=== PATIENT | female | born 1950 | race Caucasian/White ===

== ENCOUNTER 2019-03-31 07:24 | Day surgery (SDC) | payer OTHER | END 2019-03-31 11:25 | disposition home or self-care (01) | LOC: AMB-ENDOS 07:24 | DX: K57.32 Diverticulitis of large intestine without perforation or abscess without bleeding (principal) ==

== ENCOUNTER 2020-02-11 11:15 | Inpatient (IN) | payer OTHER ==
[~2020-02-11] VITALS: Ht 261.6 cm; Wt 51.7 kg
[2020-02-11] MEDS ORDERED: AVAPRO300 MG PO (14:37)
[2020-02-11] MEDS ORDERED: CARDIZEM LA180 MG PO (14:37)
[2020-02-11] MEDS ORDERED: VITAMIN D3 PO (14:38)
[2020-02-11] MEDS ORDERED: EVISTA60 MG PO (14:38)
[2020-02-11] MEDS ORDERED: LIPITOR PO (14:39)
[2020-02-11] MEDS ORDERED: RESTORIL15 M1 PO (14:39)
[2020-02-11] MEDS ORDERED: VITAMIN C500 M6 PO (14:40)
[2020-02-11] MEDS ORDERED: VITAMIN B-121000 MC4 PO (14:40)
[2020-02-11] MEDS ORDERED: [UNRECOGNIZED DRUG - OTHER] SL (14:41)
[2020-02-15] MEDS ORDERED: LIPITOR20 MG PO (13:16)
[2020-02-15] MEDS ORDERED: VITAMIN D310 MC1 PO (13:17)
[2020-02-15] MEDS ORDERED: [UNRECOGNIZED DRUG - OTHER] SL (13:22)
[2020-02-18] MEDS ORDERED: HYOSCYAMINE0.125 M1 SL (09:29)
[2020-02-18] MEDS ORDERED: OXYC1TAB9 PO (09:30)
[2020-02-18] MEDS ORDERED: INTESTINEX680 M1 PO (09:30)
[2020-02-18] MEDS ORDERED: DICY20TA PO (09:30)
== END 2020-02-18 10:59 | disposition home or self-care (01) | DRG 331 ==
LOC: SURH 02-15 10:56 → O/R 02-15 10:56 → SURH 02-15 11:15 → O/R 02-15 11:15 → SURH 02-15 13:45
PROVIDERS: ADMIT Surgery; ATTEND Surgery
PROC: 0DJD8ZZ Inspection of Lower Intestinal Tract, Via Natural or Artificial Opening Endoscopic (ICD-10-PCS; 2020-02-15)
PROC: 0DTN4ZZ Resection of Sigmoid Colon, Percutaneous Endoscopic Approach (ICD-10-PCS; principal; 2020-02-15 13:45)
DX: K57.30 Diverticulosis of large intestine without perforation or abscess without bleeding (principal); I11.9 Hypertensive heart disease without heart failure